=== PATIENT | male | born 1970 | race Caucasian/White ===

== ENCOUNTER 2020-10-16 17:03 | Emergency (ER) | payer OTHER ==
[~2020-10-16] VITALS: Ht 182.9 cm; Wt 79.8 kg
[~2020-10-16 17:03] MED LIST: BUPR75; CEFD300 PO; Miralax17 GM PO; TAMS.4ER PO
== END 2020-10-16 17:55 | disposition home or self-care (01) ==
LOC: ER 17:03
DX: T83.091A Other mechanical complication of indwelling urethral catheter, initial encounter (principal); I10 Essential (primary) hypertension; F17.210 Nicotine dependence, cigarettes, uncomplicated; Z79.899 Other long term (current) drug therapy
CPT/HCPCS: 51702; 51798; 99282-25

== ENCOUNTER 2020-10-18 09:25 | Emergency (ER) | payer OTHER ==
[~2020-10-18] VITALS: Ht 182.9 cm; Wt 77.6 kg
[2020-10-18 09:48] LABS: Source, Urine Voided
[2020-10-18 09:53] LABS: Bilirubin, Urine Neg (Neg); Blood, Urine 5+ (Neg); Glucose Qualitative, Urine Neg (Neg); Ketones, Urine Neg (Neg); Leukocyte Esterase, Urine 3+ (Neg); Nitrite, Urine Pos (Neg); Protein, Urine 3+ (Neg); Urobilinogen, Urine NORM (Normal)
[2020-10-18] MEDS ORDERED: Macrobid 100 M100 MG PO (10:10)
[2020-10-18] MEDS ORDERED: Pyridium200 MG PO (10:10)
[2020-10-18 10:14] LABS: Color, Urine Yellow (P-Yellow)
[2020-10-18 10:15] LABS: Appearance, Urine Cloudy (Clear); Bacteria Mod /hpf; Red Blood Cells, Urine TNTC /hpf (0-2); Squamous Epithelial Cells Not Seen /hpf (Few); White Blood Cells, Urine TNTC /hpf (0-5)
[2020-10-21 01:10] LABS: CHLAMYDIA TRACHOMATIS, NAA Negative (Negative)
== END 2020-10-18 10:14 | disposition home or self-care (01) ==
LOC: ER 09:25
PROVIDERS: Emergency Medicine
DX: R30.0 Dysuria (principal); F17.200 Nicotine dependence, unspecified, uncomplicated; Z86.14 Personal history of Methicillin resistant Staphylococcus aureus infection; Z79.899 Other long term (current) drug therapy
CPT/HCPCS: 51798; 81001; 87077; 87086; 87147; 87186; 87491; 87591; 99283-25; A9270